=== PATIENT | female | born 1950 | race Caucasian/White ===

== ENCOUNTER 2020-04-04 20:25 | Emergency (ER) | payer OTHER, BC ==
[~2020-04-04] VITALS: Ht 157.5 cm; Wt 145.1 kg
[2020-04-04 20:35] VITALS: BP_SYST 146
--- NOTE | 2020-04-04 20:40 | NUR ---
Patient to ER bed 5 to gown for evaluation. Side rails up. Report given to Tomas.
--- NOTE | 2020-04-04 20:44 | NUR ---
RECEIVED AND IN ROOM, DESIRAE TO ASSUME CAREPT CALM, ALERT, NO DISTRESS
--- NOTE | 2020-04-04 20:49 | NUR ---
HERE FROM HOME AFTER AN INCREASE IN RT LEG PAIN FOR 2 WEEKS. SHE NEVER RECOVERED FROM A FALL IN JUNE AND FOR 2 WEEKS MORE PAIN. SHE COMMUNICATES CLEARLY AND REPORTS NO NEW INJURY
--- NOTE | 2020-04-04 21:17 | NUR ---
DR DIAS IN TO ASSESS. PT CALM, ALERT, NO DISTRESS
--- NOTE | 2020-04-04 21:21 | NUR ---
PULSES PALPABLE BILATERAL LOWER EXT. SENSATION INTACT.
--- NOTE | 2020-04-04 21:50 | NUR ---
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
[2020-04-04 22:06] LABS: CALCIUM 9.1 mg/dL (8.4-11.0); CREATININE 0.74 mg/dL (0.55-1.30)
[2020-04-04 22:16] LABS: PROTHROMBIN TIME 9.9 SECS (9.5-12.5)
--- NOTE | 2020-04-04 22:18 | NUR ---
ULTRASOUND IN PROGRESS
[2020-04-04 22:21] LABS: ALBUMIN 3.6 g/dL (3.4-4.8); THYROID STIMULATING HORMONE 2.29 uIu/mL (0.36-3.74); TOTAL BILIRUBIN 0.5 mg/dL (0.0-1.0)
--- NOTE | 2020-04-04 23:00 | NUR ---
Pt Resting in ED Bed Calmly. No distress at this time.
[2020-04-05] MEDS ORDERED: IOHEXOL 350 mgI/mL, 150 ML INFUS..BTL IV ONE
--- NOTE | 2020-04-05 00:30 | NUR ---
Pt assisted to use the restroom.
[2020-04-05 00:54] LABS: HEMATOCRIT 40.1 % (36-48); HEMOGLOBIN 13.2 g/dL (12.0-16.0); MEAN CORPUSCULAR HEMOGLOBIN 32 pg (27-31); MEAN CORPUSCULAR HGB CONC 33 % (32-36); MEAN CORPUSCULAR VOLUME 96 fL (79.0-98.0); RED BLOOD CELL COUNT(AUTO) 4.19 MIL/uL (4.2-6.2); WHITE BLOOD COUNT (AUTO) 7.6 K/uL (4.8-10.8)
[2020-04-05 00:55] LABS: BASOPHILS % (AUTO) 0.6 % (0.0-2.0); EOSINOPHILS # (AUTO) 0.2 K/uL (0.0-0.4); EOSINOPHILS % (AUTO) 2.2 % (0.0-4.0); LYMPHOCYTES # (AUTO) 1.6 K/uL (1.0-5.5); LYMPHOCYTES % (AUTO) 21.5 % (20.5-51.5); MONOCYTES # (AUTO) 0.4 K/uL (0.0-1.0); MONOCYTES % (AUTO) 5.6 % (1.7-9.3); NEUTROPHILS # (AUTO) 5.3 K/uL (1.8-7.7); NEUTROPHILS % (AUTO) 70.1 % (40.0-70.0); PLATELET COUNT (AUTO) 214 K/uL (130-430); RED CELL DISTRIBUTION WIDTH 14.8 % (9.0-15.0)
[2020-04-05] MEDS ORDERED: DIPHENHYDRAMINE INJ 50 MG/ML VIAL IVP ONE (01:30)
[2020-04-05] MEDS ORDERED: MORPHINE 4 MG/ML INJ. SYRINGE IVP ONE (01:30)
[2020-04-05 02:23] VITALS: BP_SYST 137
--- NOTE | 2020-04-05 02:23 | NUR ---
Patient given written and verbal discharge instructions and verbalizes understanding. ER MD discussed with patient the results and treatment provided. Patient in stable condition. ID arm band removed. IV catheter removed intact and dressing applied, no active bleeding. Rx of [place], Lasix, ibuprofen and clotramidazole creme given. Patient educated on pain management and to follow up with PMD. Pain Scale 3/10. Opportunity for questions provided and answered. Medication side effect fact sheet provided.
== END 2020-04-05 02:23 | disposition home or self-care (01) ==
LOC: SED 20:25
DX: M79.661 Pain in right lower leg (principal); R60.0 Localized edema; L30.9 Dermatitis, unspecified; E07.9 Disorder of thyroid, unspecified; Z90.49 Acquired absence of other specified parts of digestive tract; Z88.5 Allergy status to narcotic agent
CPT/HCPCS: 36415; 71275; 80053; 81002; 84443; 85025; 85379; 85610; 85730; 93970; 96374; 96375; 99285; J1200; J2270; Q9967

== ENCOUNTER 2020-04-15 15:49 | Emergency (ER) | payer OTHER, BC ==
[~2020-04-15] VITALS: Ht 157.5 cm; Wt 142.9 kg
[2020-04-15 15:52] VITALS: BP_SYST 114
--- NOTE | 2020-04-15 16:05 | NUR ---
Patient to ER bed 4 to gown for evaluation. Side rails up. Report given to J CARLOS Nick.
--- NOTE | 2020-04-15 16:10 | NUR ---
DR. DENISE AT BEDSIDE
--- NOTE | 2020-04-15 16:15 | NUR ---
PT CAME IN WITH C/O BILATERAL LEG PAIN AND RIGHT UPPER ARM PAIN [id number]. HAS BEEN TAKING TYLENOL AT HOME. FELL LAST NOV. AAOX4 V/S STABLE.
--- NOTE | 2020-04-15 16:20 | NUR ---
PT REPORTS COMING INTO THE ED EARLIER THIS MONTH FOR THE SAME REASON. HAS NOT BEEN COMPLIANT WITH PRESCIBED MEDICATIONS.
--- NOTE | 2020-04-15 16:43 | NUR ---
Patient given written and verbal discharge instructions and verbalizes understanding. ER MD discussed with patient the results and treatment provided. Patient in stable condition. ID arm band removed. Rx PRESCRIBED FROM PREVIOUS VISIT WITH PT. ENCOURAGED TO FILL TODAY-NORCO AND IBUPROPHEN. Patient educated on pain management and to follow up with PMD. Pain Scale 7/10. Opportunity for questions provided and answered. Medication side effect fact sheet provided.
[2020-04-15 16:44] VITALS: BP_SYST 138
== END 2020-04-15 16:44 | disposition home or self-care (01) ==
LOC: SED 15:49
DX: M79.604 Pain in right leg (principal); M79.605 Pain in left leg; M79.602 Pain in left arm; Z88.5 Allergy status to narcotic agent
CPT/HCPCS: 99283